=== PATIENT | female | born 1985 | race Two or more races ===

== ENCOUNTER 2024-07-11 18:30 | Emergency (ER) | payer OTHER ==
[~2024-07-11] VITALS: Ht 175.3 cm; Wt 132.0 kg
[2024-07-11 18:54] VITALS: BP 152/95; PULSE 87; RESP 18; TEMP 98.7; O2SAT 100
[2024-07-11] MEDS ORDERED: diazePAM 2 MG TAB PO ONE (19:15)
[2024-07-11] MEDS: CYCLOBENZAPRINE HCL 10 MG TAB PO ONE (19:41)
[2024-07-11] MEDS: KETOROLAC TROMETH 60MG/2ML VIAL IM ONE (19:42)
[2024-07-11] MEDS ORDERED: METH-1181 PO (21:07)
== END 2024-07-11 21:14 | disposition home or self-care (01) ==
LOC: ER 18:30
DX: S29.011A Strain of muscle and tendon of front wall of thorax, initial encounter (principal); F41.9 Anxiety disorder, unspecified; R42 Dizziness and giddiness; X58.XXXA Exposure to other specified factors, initial encounter; Y93.89 Activity, other specified; Y92.89 Other specified places as the place of occurrence of the external cause; Y99.8 Other external cause status
CPT/HCPCS: 71046; 72070; 96372; 99284; J1885